=== PATIENT | male | born 1975 | race Caucasian/White ===

== ENCOUNTER 2021-11-27 10:32 | Inpatient (IN) ==
[2021-11-27] MEDS ORDERED: Midazolam 5 mg/ml concentrated 5 mg/ml 1 ml VIAL ONE (13:07)
[2021-11-27 14:13] LABS: ABS Basophils 0.1 10^3/ul (0-0.2); ABS Lymphocytes 1.1 10^3/ul (1.0-4.8); ABS Monocytes 0.6 10^3/ul (0-0.8); ABS Neutrophils 6.7 10^3/ul (1.5-7.7); Eosinophil % 0.2 %; Hematocrit 33 % (42-52); Hemoglobin 10.7 g/dL (14.0-18.0); Lymphocyte % 12.8 %; Mean Corpuscular HGB Conc 33 g/dL (31-36); Mean Corpuscular Hemoglobin 29 pg (27-31); Mean Corpuscular Volume 90 fL (80-94); Mean Platelet Volume 7.7 fL (7.4-10.4); Nucleated Red Blood Cells % 0.1; Platelet Count 220 10^3/uL (150-450); Red Blood Count 3.64 10^6 /uL (4.18-5.48); Red Cell Distribution Width 14 % (10-15); White Blood Count 8.5 10^3/uL (3.5-10.8)
[2021-11-27 15:18] LABS: Albumin 2.9 g/dL (3.2-5.2); Albumin/Globulin Ratio 1.2 (1-3); Calcium 10.3 mg/dL (8.6-10.3); Globulin 2.5 g/dL (2-4); Potassium 4.4 mmol/L (3.5-5.0); Total Bilirubin 0.3 mg/dL (0.2-1.0); Total Protein 5.4 g/dL (6.4-8.9); eGFR CKD-EPI 114.1 (>60)
[2021-11-27] MEDS ORDERED: Iohexol 350 (CONTRAST) 500 ML MDV IV ONE (15:22)
[2021-11-27 17:29] LABS: ABS Basophils 0.1 10^3/ul (0-0.2); ABS Lymphocytes 1.2 10^3/ul (1.0-4.8); ABS Monocytes 0.6 10^3/ul (0-0.8); ABS Neutrophils 6.1 10^3/ul (1.5-7.7); Eosinophil % 0.3 %; Hematocrit 31 % (42-52); Hemoglobin 10.1 g/dL (14.0-18.0); Lymphocyte % 14.4 %; Mean Corpuscular HGB Conc 33 g/dL (31-36); Mean Corpuscular Hemoglobin 29 pg (27-31); Mean Corpuscular Volume 90 fL (80-94); Mean Platelet Volume 7.6 fL (7.4-10.4); Nucleated Red Blood Cells % 0.1; Platelet Count 213 10^3/uL (150-450); Red Blood Count 3.46 10^6 /uL (4.18-5.48); Red Cell Distribution Width 14 % (10-15)
[2021-11-27 17:37] LABS: Activated Partial Thrombo Time 26.9 seconds (26.0-38.0); INR 1.14 (0.89-1.11)
[2021-11-27 18:01] LABS: eGFR CKD-EPI 113.2 (>60)
[2021-11-27] MEDS: Heparin DRIP 25,000 UNITS BAG 25,000 UNITS/500 ML BAG IV SCH (19:28)
[2021-11-27] MEDS: Heparin 5000 UNITS/ML 1 mL VIAL IV SCH (19:30)
[2021-11-27] MEDS: Nicotine PATCH 21 MG/24 HR PATCH TRANSDERM SCH (22:16)
[2021-11-28] MEDS: Heparin 5000 UNITS/ML 1 mL VIAL IV SCH ×3 (00:17→16:59)
[2021-11-28] MEDS: Morphine 2 MG/ML SYRINGE IV PRN ×2 (02:57→11:41)
[2021-11-28 06:12] LABS: ABS Basophils 0.1 10^3/ul (0-0.2); ABS Lymphocytes 1.1 10^3/ul (1.0-4.8); ABS Monocytes 0.5 10^3/ul (0-0.8); ABS Neutrophils 5.6 10^3/ul (1.5-7.7); Eosinophil % 0.3 %; Hematocrit 31 % (42-52); Hemoglobin 9.9 g/dL (14.0-18.0); Lymphocyte % 15.6 %; Mean Corpuscular HGB Conc 32 g/dL (31-36); Mean Corpuscular Hemoglobin 29 pg (27-31); Mean Corpuscular Volume 91 fL (80-94); Mean Platelet Volume 7.8 fL (7.4-10.4); Platelet Count 257 10^3/uL (150-450); Red Blood Count 3.38 10^6 /uL (4.18-5.48); Red Cell Distribution Width 13 % (10-15); White Blood Count 7.3 10^3/uL (3.5-10.8)
[2021-11-28 06:53] LABS: Anion Gap 8 mmol/L (2-11); Blood Urea Nitrogen 13 mg/dL (6-24); CO2 Carbon Dioxide 25 mmol/L (22-32); Calcium 9.5 mg/dL (8.6-10.3); Chloride 104 mmol/L (101-111); Glucose 95 mg/dL (70-100); Potassium 4.3 mmol/L (3.5-5.0); Sodium 137 mmol/L (135-145); eGFR CKD-EPI 118.2 (>60)
[2021-11-28] MEDS: Heparin DRIP 25,000 UNITS BAG 25,000 UNITS/500 ML BAG IV SCH (10:58)
[2021-11-28] MEDS: Nicotine PATCH 21 MG/24 HR PATCH TRANSDERM SCH (10:58)
[2021-11-28] MEDS ORDERED: Morphine 2 MG/ML SYRINGE IV PRN (11:49)
[2021-11-28 11:51] LABS: ALT 44 U/L (7-52); AST 42 U/L (13-39); Albumin 2.4 g/dL (3.2-5.2); Albumin/Globulin Ratio 1.1 (1-3); Alkaline Phosphatase 111 U/L (35-149); Globulin 2.2 g/dL (2-4); Total Protein 4.6 g/dL (6.4-8.9)
[2021-11-28] MEDS ORDERED: Heparin 5000 UNITS/ML 1 mL VIAL SUBCUT ONE (13:00)
[2021-11-28] MEDS: Multivitamins/Minerals TAB PO SCH (13:55)
[2021-11-28] MEDS ORDERED: Gadoteridol (CONTRAST) 279.3 MG/ML 10 ML IV ONE (14:29)
[2021-11-29] MEDS: Heparin DRIP 25,000 UNITS BAG 25,000 UNITS/500 ML BAG IV SCH ×2 (02:28→16:04)
[2021-11-29 06:04] LABS: ABS Lymphocytes 1.2 10^3/ul (1.0-4.8); ABS Monocytes 0.6 10^3/ul (0-0.8); ABS Neutrophils 6.1 10^3/ul (1.5-7.7); Eosinophil % 0.1 %; Hematocrit 33 % (42-52); Hemoglobin 10.5 g/dL (14.0-18.0); Mean Corpuscular HGB Conc 32 g/dL (31-36); Mean Corpuscular Hemoglobin 29 pg (27-31); Mean Corpuscular Volume 89 fL (80-94); Mean Platelet Volume 7.3 fL (7.4-10.4); Platelet Count 320 10^3/uL (150-450); Red Blood Count 3.63 10^6 /uL (4.18-5.48); Red Cell Distribution Width 13 % (10-15)
[2021-11-29 06:13] LABS: Activated Partial Thrombo Time 60.9 seconds (26.0-38.0); INR 1.07 (0.89-1.11)
[2021-11-29 06:35] LABS: eGFR CKD-EPI 128.2 (>60)
[2021-11-29 08:07] LABS: Calcium 9.8 mg/dL (8.6-10.3); Potassium 4.5 mmol/L (3.5-5.0)
[2021-11-29] MEDS: Multivitamins/Minerals TAB PO SCH (10:50)
[2021-11-29] MEDS: Nicotine PATCH 21 MG/24 HR PATCH TRANSDERM SCH (10:50)
[2021-11-29] MEDS: Heparin 5000 UNITS/ML 1 mL VIAL IV SCH ×2 (12:55→19:27)
[2021-11-30 07:16] LABS: ABS Lymphocytes 0.8 10^3/ul (1.0-4.8); ABS Monocytes 0.3 10^3/ul (0-0.8); ABS Neutrophils 7.4 10^3/ul (1.5-7.7); Hematocrit 33 % (42-52); Hemoglobin 10.8 g/dL (14.0-18.0); Mean Corpuscular HGB Conc 33 g/dL (31-36); Mean Corpuscular Hemoglobin 29 pg (27-31); Mean Corpuscular Volume 89 fL (80-94); Mean Platelet Volume 7.3 fL (7.4-10.4); Platelet Count 303 10^3/uL (150-450); Red Blood Count 3.68 10^6 /uL (4.18-5.48); Red Cell Distribution Width 14 % (10-15); White Blood Count 8.5 10^3/uL (3.5-10.8)
[2021-11-30 07:24] LABS: Activated Partial Thrombo Time 26.8 seconds (26.0-38.0)
[2021-11-30 07:53] LABS: INR 1.11 (0.89-1.11)
[2021-11-30 08:03] LABS: Blood Urea Nitrogen 9 mg/dL (6-24); CO2 Carbon Dioxide 26 mmol/L (22-32); Calcium 9.7 mg/dL (8.6-10.3); Chloride 101 mmol/L (101-111); Glucose 118 mg/dL (70-100); Sodium 136 mmol/L (135-145); eGFR CKD-EPI 125.9 (>60)
[2021-11-30 08:04] LABS: Anion Gap 9 mmol/L (2-11); Potassium 5.2 mmol/L (3.5-5.0)
[2021-11-30] MEDS: Multivitamins/Minerals TAB PO SCH (08:38)
[2021-11-30] MEDS: Nicotine PATCH 21 MG/24 HR PATCH TRANSDERM SCH (08:38)
[2021-11-30] MEDS ORDERED: fentaNYL 100 mcg/2 ml 50 MCG/ML VIAL ONE (08:41)
[2021-11-30 17:02] LABS: Total Iron Binding Capacity 179 mcg/dL (250-450); Transferrin 128 mg/dL (203-362)
[2021-11-30 17:06] LABS: % Iron Saturation 11 % (15-55); Iron < 20 ug/dL (50-212); Unsaturated Iron Binding 159 ug/dL
[2021-11-30 17:20] LABS: Ferritin 320.7 ng/mL (24-336)
[2021-12-01 05:11] LABS: ABS Basophils 0.1 10^3/ul (0-0.2); ABS Lymphocytes 0.8 10^3/ul (1.0-4.8); ABS Monocytes 0.5 10^3/ul (0-0.8); Hematocrit 32 % (42-52); Hemoglobin 10.2 g/dL (14.0-18.0); Mean Corpuscular HGB Conc 32 g/dL (31-36); Mean Corpuscular Hemoglobin 29 pg (27-31); Mean Corpuscular Volume 90 fL (80-94); Mean Platelet Volume 7.4 fL (7.4-10.4); Platelet Count 332 10^3/uL (150-450); Red Blood Count 3.53 10^6 /uL (4.18-5.48); Red Cell Distribution Width 14 % (10-15); White Blood Count 9.4 10^3/uL (3.5-10.8)
[2021-12-01 05:39] LABS: Calcium 9.6 mg/dL (8.6-10.3); Potassium 5.1 mmol/L (3.5-5.0)
[2021-12-01 05:44] LABS: eGFR CKD-EPI 121.8 (>60)
[2021-12-01] MEDS: Multivitamins/Minerals TAB PO SCH (07:55)
[2021-12-01] MEDS: Nicotine PATCH 21 MG/24 HR PATCH TRANSDERM SCH (07:55)
[2021-12-02 05:30] LABS: ABS Basophils 0.1 10^3/ul (0-0.2); ABS Lymphocytes 0.9 10^3/ul (1.0-4.8); ABS Monocytes 0.5 10^3/ul (0-0.8); ABS Neutrophils 9.2 10^3/ul (1.5-7.7); Hematocrit 33 % (42-52); Hemoglobin 10.5 g/dL (14.0-18.0); Lymphocyte % 8.5 %; Mean Corpuscular HGB Conc 32 g/dL (31-36); Mean Corpuscular Hemoglobin 29 pg (27-31); Mean Corpuscular Volume 89 fL (80-94); Mean Platelet Volume 7.7 fL (7.4-10.4); Platelet Count 409 10^3/uL (150-450); Red Blood Count 3.64 10^6 /uL (4.18-5.48); Red Cell Distribution Width 14 % (10-15); White Blood Count 10.7 10^3/uL (3.5-10.8)
[2021-12-02] MEDS: Multivitamins/Minerals TAB PO SCH (08:26)
[2021-12-02] MEDS: Nicotine PATCH 21 MG/24 HR PATCH TRANSDERM SCH ×2 (08:28→12:05)
[2021-12-03] MEDS: Multivitamins/Minerals TAB PO SCH (07:45)
[2021-12-03 07:49] LABS: eGFR CKD-EPI 120.6 (>60)
[2021-12-03] MEDS: Nicotine PATCH 21 MG/24 HR PATCH TRANSDERM SCH (07:49)
[2021-12-03] MEDS ORDERED: Polyethylene Glycol 3350 17 GM PACKET PO PRN (09:55)
[2021-12-03] MEDS ORDERED: Senna TAB 8.6 mg TAB PO PRN (09:56)
[2021-12-03] MEDS ORDERED: Morphine ER 15 mg TAB ** extended release PO SCH (10:00)
[2021-12-03] MEDS ORDERED: Acetaminophen IV 1 GM/100ML 1,000 MG/100 ML BAG IV PRN (10:06)
[2021-12-03] MEDS: Morphine ER 15 mg TAB ** extended release PO SCH ×2 (10:25→22:34)
[2021-12-04] MEDS: Nicotine PATCH 21 MG/24 HR PATCH TRANSDERM SCH (07:58)
[2021-12-04] MEDS: Multivitamins/Minerals TAB PO SCH (08:00)
[2021-12-04] MEDS: Morphine ER 15 mg TAB ** extended release PO SCH (11:17)
[2021-12-04] MEDS: Morphine ER 30 mg TAB ** extended release PO SCH (21:11)
[2021-12-05] MEDS: Morphine ER 30 mg TAB ** extended release PO SCH ×2 (08:51→21:02)
[2021-12-05] MEDS: Nicotine PATCH 21 MG/24 HR PATCH TRANSDERM SCH (08:52)
[2021-12-05] MEDS: Multivitamins/Minerals TAB PO SCH (08:59)
[2021-12-05] MEDS ORDERED: Polyethylene Glycol 3350 17 GM PACKET PO SCH (09:00)
[2021-12-06 07:59] LABS: Calcium 11.7 mg/dL (8.6-10.3); Magnesium 2.1 mg/dL (1.9-2.7); eGFR CKD-EPI 122.4 (>60)
[2021-12-06 08:04] LABS: Potassium 5.1 mmol/L (3.5-5.0)
[2021-12-06] MEDS: Morphine ER 30 mg TAB ** extended release PO SCH ×2 (10:16→20:33)
[2021-12-06] MEDS: Nicotine PATCH 21 MG/24 HR PATCH TRANSDERM SCH (10:17)
[2021-12-06] MEDS: Multivitamins/Minerals TAB PO SCH (10:17)
[2021-12-06] MEDS ORDERED: Magnesium Hydroxide LIQ 30 ML UDC PO ONE (11:35)
[2021-12-06] MEDS ORDERED: SODIUM ZIRCONIUM CYCLOSILICATE 5 GM PACKET PO ONE (11:36)
[2021-12-06] MEDS ORDERED: Naloxone 0.4 mg VIAL 0.4 mg/ml 1 ml VIAL IV PUSH PRN (13:50)
[2021-12-06] MEDS: NS 0.9% 1000 ml BAG 1,000 ML IV SCH ×2 (14:29→22:52)
[2021-12-07 06:31] LABS: ABS Basophils 0.1 10^3/ul (0-0.2); ABS Lymphocytes 0.9 10^3/ul (1.0-4.8); ABS Monocytes 0.6 10^3/ul (0-0.8); ABS Neutrophils 11.2 10^3/ul (1.5-7.7); Hematocrit 34 % (42-52); Lymphocyte % 6.7 %; Mean Corpuscular HGB Conc 33 g/dL (31-36); Mean Corpuscular Hemoglobin 29 pg (27-31); Mean Corpuscular Volume 89 fL (80-94); Mean Platelet Volume 6.8 fL (7.4-10.4); Platelet Count 425 10^3/uL (150-450); Red Blood Count 3.77 10^6 /uL (4.18-5.48); Red Cell Distribution Width 14 % (10-15); White Blood Count 12.7 10^3/uL (3.5-10.8)
[2021-12-07 06:57] LABS: Calcium 10.5 mg/dL (8.6-10.3); Potassium 5.3 mmol/L (3.5-5.0); eGFR CKD-EPI 124.5 (>60)
[2021-12-07] MEDS ORDERED: SODIUM ZIRCONIUM CYCLOSILICATE 10 GM PACKET PO ONE (07:34)
[2021-12-07 08:09] LABS: Magnesium 2.2 mg/dL (1.9-2.7); Phosphorus 3.5 mg/dL (2.5-5.0); Uric Acid 4.2 mg/dL (4.4-7.6)
[2021-12-07] MEDS: Nicotine PATCH 21 MG/24 HR PATCH TRANSDERM SCH (09:15)
[2021-12-07] MEDS: Morphine ER 30 mg TAB ** extended release PO SCH ×2 (09:18→21:53)
[2021-12-07] MEDS ORDERED: Zoledronic Acid 4 MG in NS 0.9% 100 ml BAG 100 ML IVPB ONE (11:00)
[2021-12-07] MEDS: Senna TAB 8.6 mg TAB PO SCH (21:54)
[2021-12-08] MEDS: Morphine ER 30 mg TAB ** extended release PO SCH ×3 (03:55→21:51)
[2021-12-08 06:43] LABS: ABS Lymphocytes 0.5 10^3/ul (1.0-4.8); ABS Monocytes 0.6 10^3/ul (0-0.8); ABS Neutrophils 11.4 10^3/ul (1.5-7.7); Hematocrit 35 % (42-52); Hemoglobin 11.2 g/dL (14.0-18.0); Lymphocyte % 3.9 %; Mean Corpuscular HGB Conc 32 g/dL (31-36); Mean Corpuscular Hemoglobin 29 pg (27-31); Mean Corpuscular Volume 89 fL (80-94); Mean Platelet Volume 7.1 fL (7.4-10.4); Platelet Count 397 10^3/uL (150-450); Red Blood Count 3.91 10^6 /uL (4.18-5.48); Red Cell Distribution Width 14 % (10-15); White Blood Count 12.4 10^3/uL (3.5-10.8)
[2021-12-08 07:04] LABS: CO2 Carbon Dioxide 26 mmol/L (22-32); Calcium 9.4 mg/dL (8.6-10.3); Chloride 99 mmol/L (101-111); Sodium 133 mmol/L (135-145)
[2021-12-08 07:06] LABS: Anion Gap 8 mmol/L (2-11)
[2021-12-08 07:10] LABS: ALT 60 U/L (7-52); Albumin/Globulin Ratio 1.1 (1-3); Alkaline Phosphatase 113 U/L (35-149); Blood Urea Nitrogen 19 mg/dL (6-24); Globulin 2.7 g/dL (2-4); Glucose 120 mg/dL (70-100); Total Protein 5.7 g/dL (6.4-8.9); eGFR CKD-EPI 126.6 (>60)
[2021-12-08 08:37] LABS: Potassium Redraw 4.8 mmol/L (3.5-5.0)
[2021-12-08] MEDS: Nicotine PATCH 21 MG/24 HR PATCH TRANSDERM SCH (10:36)
[2021-12-08] MEDS: Senna TAB 8.6 mg TAB PO SCH (21:52)
[2021-12-09] MEDS: Morphine ER 30 mg TAB ** extended release PO SCH ×3 (04:43→20:51)
[2021-12-09 06:13] LABS: ABS Lymphocytes 0.4 10^3/ul (1.0-4.8); ABS Monocytes 0.5 10^3/ul (0-0.8); ABS Neutrophils 7.5 10^3/ul (1.5-7.7); Hematocrit 34 % (42-52); Lymphocyte % 4.9 %; Mean Corpuscular HGB Conc 33 g/dL (31-36); Mean Corpuscular Hemoglobin 29 pg (27-31); Mean Corpuscular Volume 88 fL (80-94); Mean Platelet Volume 6.5 fL (7.4-10.4); Platelet Count 330 10^3/uL (150-450); Red Blood Count 3.83 10^6 /uL (4.18-5.48); Red Cell Distribution Width 14 % (10-15); White Blood Count 8.5 10^3/uL (3.5-10.8)
[2021-12-09 06:50] LABS: Albumin 2.9 g/dL (3.2-5.2); Albumin/Globulin Ratio 1.1 (1-3); Calcium 8.3 mg/dL (8.6-10.3); Globulin 2.7 g/dL (2-4); Potassium 4.7 mmol/L (3.5-5.0); Total Bilirubin 0.3 mg/dL (0.2-1.0); Total Protein 5.6 g/dL (6.4-8.9); eGFR CKD-EPI 125.9 (>60)
[2021-12-09] MEDS: Polyethylene Glycol 3350 17 GM PACKET PO PRN (08:38)
[2021-12-09] MEDS: Nicotine PATCH 21 MG/24 HR PATCH TRANSDERM SCH (08:45)
[2021-12-09] MEDS: Lidocaine PATCH 5% PATCH TRANSDERM SCH (17:27)
[2021-12-09] MEDS: Senna TAB 8.6 mg TAB PO SCH (20:51)
[2021-12-10] MEDS: Morphine ER 30 mg TAB ** extended release PO SCH ×3 (04:15→20:16)
[2021-12-10 05:13] LABS: ABS Lymphocytes 0.6 10^3/ul (1.0-4.8); ABS Monocytes 0.6 10^3/ul (0-0.8); ABS Neutrophils 10.5 10^3/ul (1.5-7.7); Hematocrit 35 % (42-52); Lymphocyte % 4.9 %; Mean Corpuscular HGB Conc 32 g/dL (31-36); Mean Corpuscular Hemoglobin 28 pg (27-31); Mean Corpuscular Volume 89 fL (80-94); Mean Platelet Volume 6.7 fL (7.4-10.4); Platelet Count 314 10^3/uL (150-450); Red Blood Count 3.92 10^6 /uL (4.18-5.48); Red Cell Distribution Width 14 % (10-15); White Blood Count 11.7 10^3/uL (3.5-10.8)
[2021-12-10 05:37] LABS: Albumin 3.1 g/dL (3.2-5.2); Albumin/Globulin Ratio 1.2 (1-3); Calcium 8.1 mg/dL (8.6-10.3); Globulin 2.6 g/dL (2-4); Magnesium 2.3 mg/dL (1.9-2.7); Potassium 4.7 mmol/L (3.5-5.0); Total Bilirubin 0.3 mg/dL (0.2-1.0); Total Protein 5.7 g/dL (6.4-8.9); eGFR CKD-EPI 128.2 (>60)
[2021-12-10] MEDS ORDERED: Acetaminophen IV 1 GM/100ML 1,000 MG/100 ML BAG IV ONE ×2 (08:35→12:40)
[2021-12-10] MEDS: Lidocaine PATCH 5% PATCH TRANSDERM SCH (08:38)
[2021-12-10] MEDS: Nicotine PATCH 21 MG/24 HR PATCH TRANSDERM SCH (08:39)
[2021-12-10] MEDS: Senna TAB 8.6 mg TAB PO SCH (20:16)
[2021-12-11] MEDS: Morphine ER 30 mg TAB ** extended release PO SCH ×3 (04:00→20:14)
[2021-12-11 06:29] LABS: ABS Basophils 0.1 10^3/ul (0-0.2); ABS Lymphocytes 0.7 10^3/ul (1.0-4.8); ABS Monocytes 0.7 10^3/ul (0-0.8); ABS Neutrophils 12.4 10^3/ul (1.5-7.7); Hematocrit 35 % (42-52); Hemoglobin 11.2 g/dL (14.0-18.0); Lymphocyte % 4.9 %; Mean Corpuscular HGB Conc 32 g/dL (31-36); Mean Corpuscular Hemoglobin 28 pg (27-31); Mean Corpuscular Volume 89 fL (80-94); Mean Platelet Volume 6.9 fL (7.4-10.4); Platelet Count 331 10^3/uL (150-450); Red Blood Count 3.99 10^6 /uL (4.18-5.48); Red Cell Distribution Width 14 % (10-15); White Blood Count 13.9 10^3/uL (3.5-10.8)
[2021-12-11 07:02] LABS: Albumin 3.1 g/dL (3.2-5.2); Albumin/Globulin Ratio 1.2 (1-3); Globulin 2.6 g/dL (2-4); Potassium 4.7 mmol/L (3.5-5.0); Total Bilirubin 0.4 mg/dL (0.2-1.0); Total Protein 5.7 g/dL (6.4-8.9); eGFR CKD-EPI 124.5 (>60)
[2021-12-11] MEDS: Nicotine PATCH 21 MG/24 HR PATCH TRANSDERM SCH (08:02)
[2021-12-11] MEDS: Lidocaine PATCH 5% PATCH TRANSDERM SCH (08:03)
[2021-12-11] MEDS: Magnesium Hydroxide LIQ 30 ML UDC PO PRN ×2 (08:05→14:29)
[2021-12-11] MEDS: Polyethylene Glycol 3350 17 GM PACKET PO PRN (20:13)
[2021-12-11] MEDS: Senna TAB 8.6 mg TAB PO SCH (20:13)
[2021-12-12] MEDS: Morphine ER 30 mg TAB ** extended release PO SCH ×3 (04:10→21:09)
[2021-12-12 06:19] LABS: ABS Basophils 0.1 10^3/ul (0-0.2); ABS Lymphocytes 0.5 10^3/ul (1.0-4.8); ABS Monocytes 0.8 10^3/ul (0-0.8); Hematocrit 33 % (42-52); Hemoglobin 10.7 g/dL (14.0-18.0); Lymphocyte % 3.8 %; Mean Corpuscular HGB Conc 32 g/dL (31-36); Mean Corpuscular Hemoglobin 28 pg (27-31); Mean Corpuscular Volume 88 fL (80-94); Mean Platelet Volume 6.7 fL (7.4-10.4); Platelet Count 296 10^3/uL (150-450); Red Blood Count 3.77 10^6 /uL (4.18-5.48); Red Cell Distribution Width 14 % (10-15); White Blood Count 12.4 10^3/uL (3.5-10.8)
[2021-12-12 06:44] LABS: Albumin/Globulin Ratio 1.2 (1-3); Calcium 8.1 mg/dL (8.6-10.3); Globulin 2.5 g/dL (2-4); Magnesium 2.3 mg/dL (1.9-2.7); Total Bilirubin 0.4 mg/dL (0.2-1.0); Total Protein 5.5 g/dL (6.4-8.9); eGFR CKD-EPI 130.6 (>60)
[2021-12-12] MEDS: Nicotine PATCH 21 MG/24 HR PATCH TRANSDERM SCH (09:16)
[2021-12-12] MEDS: Lidocaine PATCH 5% PATCH TRANSDERM SCH (09:16)
[2021-12-12] MEDS: Magnesium Hydroxide LIQ 30 ML UDC PO PRN (09:21)
[2021-12-12] MEDS: Senna TAB 8.6 mg TAB PO SCH (21:10)
[2021-12-13] MEDS: Morphine ER 30 mg TAB ** extended release PO SCH ×3 (04:29→20:15)
[2021-12-13 06:43] LABS: ABS Lymphocytes 0.5 10^3/ul (1.0-4.8); ABS Monocytes 0.7 10^3/ul (0-0.8); ABS Neutrophils 11.3 10^3/ul (1.5-7.7); Hematocrit 33 % (42-52); Hemoglobin 10.6 g/dL (14.0-18.0); Lymphocyte % 3.6 %; Mean Corpuscular HGB Conc 32 g/dL (31-36); Mean Corpuscular Hemoglobin 28 pg (27-31); Mean Corpuscular Volume 88 fL (80-94); Mean Platelet Volume 6.7 fL (7.4-10.4); Platelet Count 293 10^3/uL (150-450); Red Blood Count 3.75 10^6 /uL (4.18-5.48); Red Cell Distribution Width 14 % (10-15); White Blood Count 12.4 10^3/uL (3.5-10.8)
[2021-12-13 06:53] LABS: Calcium 7.9 mg/dL (8.6-10.3); Magnesium 2.3 mg/dL (1.9-2.7); eGFR CKD-EPI 130.6 (>60)
[2021-12-13 06:56] LABS: Potassium 5.1 mmol/L (3.5-5.0)
[2021-12-13] MEDS: Nicotine PATCH 21 MG/24 HR PATCH TRANSDERM SCH (08:36)
[2021-12-13] MEDS: Lidocaine PATCH 5% PATCH TRANSDERM SCH (08:36)
[2021-12-13] MEDS: Polyethylene Glycol 3350 17 GM PACKET PO PRN (11:28)
[2021-12-13] MEDS: Senna TAB 8.6 mg TAB PO SCH (20:15)
[2021-12-14] MEDS: Morphine ER 30 mg TAB ** extended release PO SCH ×3 (04:24→20:38)
[2021-12-14 06:38] LABS: ABS Basophils 0.2 10^3/ul (0-0.2); ABS Lymphocytes 0.4 10^3/ul (1.0-4.8); ABS Monocytes 0.8 10^3/ul (0-0.8); ABS Neutrophils 11.9 10^3/ul (1.5-7.7); Hematocrit 33 % (42-52); Hemoglobin 10.7 g/dL (14.0-18.0); Lymphocyte % 3.3 %; Mean Corpuscular HGB Conc 32 g/dL (31-36); Mean Corpuscular Hemoglobin 28 pg (27-31); Mean Corpuscular Volume 88 fL (80-94); Mean Platelet Volume 6.9 fL (7.4-10.4); Platelet Count 277 10^3/uL (150-450); Red Blood Count 3.81 10^6 /uL (4.18-5.48); Red Cell Distribution Width 14 % (10-15); White Blood Count 13.3 10^3/uL (3.5-10.8)
[2021-12-14 07:00] LABS: eGFR CKD-EPI 131.5 (>60)
[2021-12-14] MEDS ORDERED: Nicotine GUM 4MG FRUIT FLAVOR PO PRN (07:38)
[2021-12-14] MEDS: Nicotine PATCH 21 MG/24 HR PATCH TRANSDERM SCH (09:07)
[2021-12-14] MEDS: Lidocaine PATCH 5% PATCH TRANSDERM SCH (09:08)
[2021-12-14] MEDS: Senna TAB 8.6 mg TAB PO SCH (20:39)
[2021-12-15] MEDS: Morphine ER 30 mg TAB ** extended release PO SCH ×3 (04:38→18:16)
[2021-12-15] MEDS: Nicotine PATCH 21 MG/24 HR PATCH TRANSDERM SCH (08:29)
[2021-12-15] MEDS: Lidocaine PATCH 5% PATCH TRANSDERM SCH (08:31)
[2021-12-15] MEDS ORDERED: Morphine ER 30 mg TAB ** extended release PO SCH (09:38)
[2021-12-15] MEDS: Senna TAB 8.6 mg TAB PO SCH (21:22)
[2021-12-16] MEDS: Morphine ER 30 mg TAB ** extended release PO SCH ×3 (02:22→18:08)
[2021-12-16 06:27] LABS: Hematocrit 33 % (42-52); Hemoglobin 10.5 g/dL (14.0-18.0); Mean Corpuscular HGB Conc 32 g/dL (31-36); Mean Corpuscular Hemoglobin 28 pg (27-31); Mean Corpuscular Volume 88 fL (80-94); Mean Platelet Volume 7.1 fL (7.4-10.4); Platelet Count 214 10^3/uL (150-450); Red Blood Count 3.71 10^6 /uL (4.18-5.48); Red Cell Distribution Width 15 % (10-15); White Blood Count 11.1 10^3/uL (3.5-10.8)
[2021-12-16] MEDS: Nicotine PATCH 21 MG/24 HR PATCH TRANSDERM SCH (09:17)
[2021-12-16] MEDS: Lidocaine PATCH 5% PATCH TRANSDERM SCH (09:18)
[2021-12-16] MEDS: Senna TAB 8.6 mg TAB PO SCH (20:14)
[2021-12-17] MEDS: Morphine ER 30 mg TAB ** extended release PO SCH ×2 (02:25→10:07)
[2021-12-17] MEDS: Nicotine PATCH 21 MG/24 HR PATCH TRANSDERM SCH (07:57)
[2021-12-17] MEDS: Lidocaine PATCH 5% PATCH TRANSDERM SCH (07:57)
[2021-12-17] MEDS ORDERED: Morphine ER 15 mg TAB ** extended release PO SCH ×3 (13:00→14:00)
[2021-12-17] MEDS: Senna TAB 8.6 mg TAB PO SCH (20:52)
[2021-12-17] MEDS: Morphine ER 15 mg TAB ** extended release PO SCH (23:00)
[2021-12-18] MEDS ORDERED: Morphine ER 15 mg TAB ** extended release PO SCH
[2021-12-18] MEDS: Morphine ER 15 mg TAB ** extended release PO SCH (09:24)
[2021-12-18] MEDS: Nicotine PATCH 21 MG/24 HR PATCH TRANSDERM SCH (09:26)
[2021-12-18] MEDS: Lidocaine PATCH 5% PATCH TRANSDERM SCH (09:27)
[2021-12-18 11:30] VITALS: BP 115/70
[2021-12-18] MEDS ORDERED: Zoledronic Acid 4 MG in NS 0.9% 100 ml BAG 100 ML IVPB ONE (14:15)
[2021-12-18] MEDS ORDERED: Morphine ER 30 mg TAB ** extended release PO SCH (16:00)
[2021-12-22 12:37] LABS: Specimen Cells; Tissue ID CN22-1265
== END 2021-12-18 16:45 | disposition home or self-care (01) | DRG 134 ==
LOC: ED 10:32 → EDHOLD 10:32 → SUATTDRO 19:37 → MEDTELE 22:36 → SUATTDRO 11-28 10:36 → SSU 12-09 21:50
PROVIDERS: ADMIT Internal Medicine; ATTEND Internal Medicine

== ENCOUNTER 2022-02-21 11:42 | Inpatient (IN) ==
[2022-02-21] MEDS ORDERED: Lactated Ringers 1000 ml BAG 1,000 ML IV ONE ×2 (11:50→11:51)
[2022-02-21] MEDS ORDERED: Norepinephrine 16MCG/ML BAG NS 4,000 MCG/250 ML BAG IV SCH (12:00)
[2022-02-21 12:09] LABS: Hematocrit 23 % (42-52); Hemoglobin 6.8 g/dL (14.0-18.0); Mean Corpuscular HGB Conc 30 g/dL (31-36); Mean Corpuscular Hemoglobin 29 pg (27-31); Mean Corpuscular Volume 95 fL (80-94); Mean Platelet Volume 8.2 fL (7.4-10.4); Platelet Count 89 10^3/uL (150-450); Red Blood Count 2.36 10^6 /uL (4.18-5.48); Red Cell Distribution Width 28 % (10-15); White Blood Count 2.9 10^3/uL (3.5-10.8)
[2022-02-21] MEDS ORDERED: Naloxone 0.4 mg VIAL 0.4 mg/ml 1 ml VIAL IV PUSH ONE ×2 (12:19)
[2022-02-21 12:24] LABS: Burr Cells 3+; Polychromasia 1+
[2022-02-21 12:25] LABS: Anisocytosis 3+
[2022-02-21 12:26] LABS: ABS Lymphocytes 0.1 10^3/ul (1.0-4.8); ABS Monocytes 0.1 10^3/ul (0-0.8); ABS Neutrophils 2.7 10^3/ul (1.5-7.7); Eosinophil % 0.7 %; Lymphocyte % 2.4 %; Nucleated Red Blood Cells % 0.1
[2022-02-21 12:52] LABS: Albumin 2.4 g/dL (3.2-5.2); C Reactive Protein 97.56 mg/L (<8.01); Calcium 7.6 mg/dL (8.6-10.3); Globulin 2.4 g/dL (2-4); Total Bilirubin 0.6 mg/dL (0.2-1.0); Total Protein 4.8 g/dL (6.4-8.9); eGFR CKD-EPI 51.2 (>60)
[2022-02-21] MEDS ORDERED: Iodixanol (CONTRAST) 320 MG/ML 100 ML SDV IV ONE (13:00)
[2022-02-21] MEDS ORDERED: Albuterol 2.5mg/3 ml (0.083%) NEB.SOLN INH ONE (13:13)
[2022-02-21 14:10] LABS: Activated Partial Thrombo Time 29.7 seconds (26.0-38.0); INR 1.86 (0.88-1.18)
[2022-02-21 14:25] LABS: High Sensitivity Troponin 1 Hr 15 pg/mL (<20)
[2022-02-21 14:52] LABS: Calcium 7.5 mg/dL (8.6-10.3); eGFR CKD-EPI 50.1 (>60)
[2022-02-21 14:55] LABS: Potassium 5.1 mmol/L (3.5-5.0)
[2022-02-21] MEDS ORDERED: SODIUM ZIRCONIUM CYCLOSILICATE 5 GM PACKET PO ONE (15:07)
[2022-02-21] MEDS: Enoxaparin 40 MG/0.4 ML SYR SUBCUT SCH ×2 (15:10→15:12)
[2022-02-21] MEDS ORDERED: NS 0.9% 1000 ml BAG 1,000 ML IV SCH (15:15)
[2022-02-21] MEDS ORDERED: Remdesivir 100 mg Vial 200 MG in NS 0.9% 250 ml 210 ML IV ONE (15:37)
[2022-02-21] MEDS ORDERED: Dexamethasone IV 4 MG/ML VIAL 1 ml VIAL IV SLOW PU SCH (16:00)
[2022-02-21] MEDS ORDERED: Norepinephrine 16MCG/ML BAGD5W 4,000 MCG/250 ML BAG IV SCH (16:00)
[2022-02-21 16:04] VITALS: BP 91/44
[2022-02-21] MEDS ORDERED: Norepinephrine 16MCG/ML BAGD5W 4,000 MCG/250 ML BAG IV ONE ×2 (16:25)
[2022-02-21] MEDS ORDERED: Morphine 4 MG/ML VIAL (1 ml) ONE (17:26)
[2022-02-21] MEDS ORDERED: Morphine 4 MG/ML VIAL (1 ml) IM ONE (17:26)
[2022-02-21] MEDS ORDERED: Heparin 5000 UNITS/ML 1 mL VIAL SUBCUT SCH (22:00)
[2022-02-22] MEDS ORDERED: Remdesivir 100 mg Vial 100 MG in NS 0.9% 250 ml 230 ML IV SCH (21:00)
== END 2022-02-21 17:54 | disposition expired | DRG 421 ==
LOC: EDUNIT# → EDBD → ED 11:42 → EDHOLD 14:50 → ICU 15:48
PROVIDERS: ADMIT Internal Medicine Critical Care Medicine; ATTEND Internal Medicine Critical Care Medicine